=== PATIENT | male | born 1975 | race Caucasian/White ===

== ENCOUNTER → 2018-10-19 16:33 | Outpatient (CLI) | payer BC, SELFPAY ==
[2018-10-19 18:47] LABS: Chlamydia Trachomatis by PCR Negative (Negative); Neisserai gonorrhoeae by PCR Negative (Negative); Probe Check PASS; Sample Adequacy Control PASS; Specimen Processing Control PASS
[2018-10-19 18:51] LABS: HIV - WCH Non-Reactive (Nonreactive)
[2018-10-21 05:06] LABS: HEPATITIS B SURFACE AG Negative (Negative)
[2018-10-21 08:11] LABS: Hep B Surface Antibodies Non Reactive (.); Hepatitis B Core AB IgM Negative (Negative)
== END ==
PROVIDERS: Family Provider Nurse Practitioner Family; PCP Nurse Practitioner Family; Referring Provider Nurse Practitioner Adult Health; Visit Provider Nurse Practitioner Adult Health
DX: Z20.2 Contact with and (suspected) exposure to infections with a predominantly sexual mode of transmission (principal)
CPT/HCPCS: 36415; 86703; 86705; 86706; 87340; 87491; 87591

== ENCOUNTER → 2021-02-27 13:07 | Outpatient (CLI) | payer BC, SELFPAY ==
--- NOTE | 2021-02-27 13:14 | STEWCON_ITS ---
Reason For Study: CHEST PAIN Stress Results Protocol: Gigi Protocol WITH DEFINITY Maximum Predicted HR: 174 bpm Target HR: 148 bpm % Maximum Predicted HR: 83 % DurationHeart Rate Stage (mm:ss) (bpm) BP Comment BASELINE 70 120/825 CC DEFINITY STAGE 1 3:00 113 170/82 STAGE 2 3:00 125 178/80SOB NOTED, NO CHEST PAIN STAGE 3 3:00 144 192/70INCREASED SOB RECOVERY 86 130/82 Stress Duration: 9:00 mm:ss Maximum Stress HR: 144 bpm Baseline Echocardiogram Findings Stress Echo Wall motion Data Resting WM Intermediate WM Stress WM ECHO/Stress Test Echo W/Contrast Interpretation Summary Exercise stress echo. 45-year-old man with a history of new onset diabetes. Stress EKG. Resting electrocardiogram demonstrates normal sinus rhythm with a rate of 76 bp m normal intervals are noted resting blood pressure is 120/82 mmHg. The patient exercised accordin g to regular Gigi protocol for a total duration of 9 minutes. The maximum heart rate attained was 146 bpm which was 83% of max impacted heart rate the maximum workload was 10.4 metabolic equivale nts. At rest there were no ST or T wave changes noted to suggest ischemia and at peak exercise ups loping ST changes were noted with did not meet the criteria for ischemia. No clinical angina was noted. The test was terminated due to dyspnea. The peak blood pressure was 192/70 mmHg which was a normal blood pressure response to exercise. Stress echocardiographic images. The resting echocardiogram demonstrated preserved ejection fraction of 55% with no wall motion abnormalities present. With stress there was improvement in left ventricular sy stolic function improvement in her ejection fraction up to 65% with no wall motion abnormalitie s present. No clinical angina was noted. Conclusion: Exercise stress echocardiogram with no evidence of ischemia at a high workload Normal resting and stress echocardiographic images. Ordering Physician: Kim Villatoro Referring Physician: Kim Villatoro Performed By: Nidhi Montaño, JANNETH, RVT
== END ==
PROVIDERS: PCP Nurse Practitioner Family; Referring Provider Nurse Practitioner Family; Visit Provider Nurse Practitioner Family
DX: R06.02 Shortness of breath (principal); I10 Essential (primary) hypertension; E66.9 Obesity, unspecified; F17.200 Nicotine dependence, unspecified, uncomplicated; Z78.9 Other specified health status
CPT/HCPCS: 93017; 93350; Q9957; A4216; C8928

== ENCOUNTER → 2021-03-04 13:58 | Outpatient (CLI) | payer BC, SELFPAY | PROVIDERS: PCP Nurse Practitioner Family; Referring Provider Nurse Practitioner Family; Visit Provider Nurse Practitioner Family | DX: R00.2 Palpitations (principal); I10 Essential (primary) hypertension; R06.02 Shortness of breath; F17.200 Nicotine dependence, unspecified, uncomplicated; Z78.9 Other specified health status | CPT/HCPCS: 93225; 93226 ==

== ENCOUNTER → 2022-09-13 | Outpatient (CLI) | payer BC, SELFPAY ==
--- NOTE | 2022-09-13 11:38 | RAD_ITS ---
STUDY: X-RAY CHEST REASON FOR EXAM: Male, 47 years old. CHEST PAIN CHRONIC COUGH, TOBACCO DEPENDENCE TECHNIQUE: XR Chest 2 Views COMPARISON: None FINDINGS: There is no demonstrated pleural abnormality. Normal size heart. Normal mediastinum and myla. Normal visualized pulmonary arteries. Normal visualized aortic arch and descending thoracic aorta. There are diffuse degenerative changes of the visualized thoracic spine. Normal visualized ribs, clavicles, and shoulders. There is no demonstrated abnormality of the visualized soft tissue structures of the upper abdomen. RAD/Chest PA and Lateral IMPRESSION: There are no acute findings. Electronically Signed: Nehemiah Ledesma MD at 16:16 EDT ,
== END | disposition home or self-care (01) ==
LOC: RAD 11:35
PROVIDERS: PCP Nurse Practitioner Family; Referring Provider Nurse Practitioner Family; Visit Provider Nurse Practitioner Family
DX: R05.3 Chronic cough (principal); F17.200 Nicotine dependence, unspecified, uncomplicated
CPT/HCPCS: 71046